=== PATIENT | male | born 1970 | race Asian ===

== ENCOUNTER 2025-02-16 04:49 | Emergency (ER) | payer MEDICAID, SELFPAY ==
[2025-02-16 04:50] VITALS: BMI 25.1
[2025-02-16 04:56] VITALS: BP 95/54; PULSE 55; RESP 17; TEMP 36.6; O2SAT 100
--- NOTE | 2025-02-16 05:05 | EKG_ITS ---
[facility] Test Date: 2025-02-16 Pat Name: MODESTO CALDERON Department: Room: - Gender: Male Health Information Internship: : 1970 Requested By: Estevan Enciso Order Number: [id number] Reading MD: Estevan Enciso Measurements Intervals [place] Rate: 58 P: 87 LA: 168 QRS: 78 QRSD: 110 T: 85 QT: 420 QTc: 415 Interpretive Statements SINUS BRADYCARDIA POSSIBLE RIGHT ATRIAL ENLARGEMENT [0.25mV P-WAVE] POSSIBLE LEFT ATRIAL ENLARGEMENT [-0.1mV P-WAVE IN V1/V2] INCOMPLETE RIGHT BUNDLE BRANCH BLOCK [90+ ms QRS DURATION, TERMINAL R IN V1/V2, 40+ ms S IN I/aVL/V4/V5/V6] ST ELEVATION, PROBABLY EARLY REPOLARIZATION [ST ELEVATION WITH NORMALLY INFLECTED T-WAVE] MODERATE ST DEPRESSION [0.05+ mV ST DEPRESSION] No previous ECG available for comparison /store/S0/[id number].pdf
--- NOTE | 2025-02-16 05:05 | XR_ITS ---
EXAMINATION: Cervical spine 3 views TECHNIQUE: AP, lateral, coned AP odontoid cervical spine 3 views Date and time: February 16, 2025, 0619 hours INDICATIONS: Neck pain beginning 3 days ago FINDINGS: Straightening normal cervical lordosis. Mild degenerative disc disease C5-C6, C6-C7 No cervical fracture Intact odontoid IMPRESSION: Mild degenerative disc disease C5-C6, C6-C7
--- NOTE | 2025-02-16 05:05 | XR_ITS ---
EXAMINATION: Thoracic spine 3 views TECHNIQUE: AP lateral: Lateral upper dorsal spine 3 views Date and time: February 16, 2025, 0630 hours INDICATIONS: Upper back pain beginning 3 days ago. FINDINGS: Mild osteopenia. No thoracic fracture. Mild diffuse thoracic degenerative disc disease IMPRESSION: Mild diffuse thoracic degenerative disc disease
--- NOTE | 2025-02-16 05:05 | XR_ITS ---
EXAMINATION: PA chest single view TECHNIQUE: Upright PA chest single view Date and time: February 16, 2025, 0621 hours INDICATIONS: Chest pain shortness of breath beginning 3 days ago FINDINGS: Normal heart size No lobar pneumonia or pulmonary edema. Intact osseous structures. IMPRESSION: No lobar pneumonia or pulmonary edema
--- NOTE | 2025-02-16 05:06 | PD.EDRME ---
Rapid Medical Screening Exam RME Arrival date/time: 02/16/25 04:49 This is a case of 54-year-old male who have history of asthma came in in the emergency room due to multiple symptoms initially patient was complaining of posterior neck pain and mid back pain which patient started to have shortness of breath no chest pain Chief Complaint: Shortness of Breath/Dyspnea Time Seen by Provider: 02/16/25 05:04 Vital signs: Vital Signs Temperature 98 F 02/16/25 04:56 Pulse Rate 55 L 02/16/25 04:56 Respiratory Rate 17 02/16/25 04:56 Blood Pressure 95/54 L 02/16/25 04:56 Pulse Oximetry (%) 100 02/16/25 04:56 Oxygen Delivery Method Room Air 02/16/25 04:56 Exam: Tenderness noted on posterior cervical and thoracic area clear breath sound heart normal rate regular rhythm normal Clinical Impression: Back pain shortness of breath
[2025-02-16] MEDS: KETOROLAC INJ 60 MG/2 ML VIAL 30 MG IM (05:16)
[2025-02-16] MEDS: HYDROcodone/APAP 5/325 TABLET 1 TAB PO (05:16)
[2025-02-16 06:16] LABS: Basophils # (Auto) 0.1 Thou/mm3 (0.0-0.2); Basophils % (Auto) 1 % (0-2.5); Eosinophils # (Auto) 0.7 Thou/mm3 (0.0-0.5); Eosinophils % (Auto) 5 % (0-10); Hematocrit 37.8 % (41.0-53.0); Hemoglobin 13.1 g/dL (13.5-16.0); Immature Granulocytes Auto 0.05 Thou/mm3 (0.00-0.00); Lymphocytes # (Auto) 2.7 Thou/mm3 (1.0-4.8); Lymphocytes % (Auto) 18 % (10-50); Mean Corpuscular HGB Conc 34.7 g/dl (31.0-37.0); Mean Corpuscular Hemoglobin 31.2 pg (25.0-35.0); Mean Corpuscular Volume 90 fL (80-100); Monocytes # (Auto) 1.2 Thou/mm3 (0.0-0.8); Monocytes % (Auto) 8 % (0-12); Neutrophils # (Auto) 10.1 Thou/mm3 (1.8-7.7); Neutrophils % (Auto) 68 % (37-80); Nucleated Red Blood Cell # 0.00 Thou/mm3 (0.00-0.00); Nucleated Red Blood Cell % 0 /100 WBC (0); Platelet Count 247 Thou/mm3 (140-440); RDW Standard Deviation 40.8 fL (35.1-43.9); Red Blood Count 4.20 Miln/mm3 (4.50-5.90); White Blood Count 14.9 Thou/mm3 (3.8-10.6)
--- NOTE | 2025-02-16 06:48 | EDNOTE_ITS ---
ED Back Injury Pain RME/HPI General Chief Complaint: Shortness of Breath/Dyspnea Stated Complaint: DIFFICULTY BREATHING, BACK PAIN Time Seen by Provider: 02/16/25 05:04 Arrival date/time: 02/16/25 04:49 RME / HPI RME / HPI Narrative: 02/16/25 04:49 This is a case of 54-year-old male who have history of asthma came in in the emergency room due to multiple symptoms initially patient was complaining of posterior neck pain and mid back pain which patient started to have shortness of breath no chest pain See [facility] for Dr. Griffin's HPI documentation. Related Data Previous Rx's ?Medication ?Instructions ?Recorded acetaminophen 300 mg-codeine 30 mg 2 tab PO Q8H PRN pa in #20 tabs 02/16/25 tablet ibuprofen 800 mg tablet 800 mg PO Q8H PRN pain #30 t abs 02/16/25 lidocaine 5 % topical patch 2 patch topical QDAY PRN p ain #30 02/16/25 (Lidoderm) ea Allergies Allergy/AdvReac Type Severity Reaction Status Date / Time NKA* Allergy Uncoded 09/15/10 13:42 Review of Systems Review of Systems Systems Reviewed: All systems reviewed, normal except as documented Past Medical History Social History SMOKING STATUS: Current every day smoker ED Exam Narrative Physical exam: See [facility] for Dr. Griffin's physical exam documentation. Course Quality Measures none Orders Category Date Time Status EKG (ED ONLY) *Do not use* NOW Care 02/16/25 05:05 Completed EKG (ED Only) Stat Exams 02/16/25 05:05 Draft XR cervical spine 2-3V Stat Exams 02/16/25 05:05 Completed XR chest 1V Stat Exams 02/16/25 05:05 Completed XR thoracic spine 3V Stat Exams 02/16/25 05:05 Completed BNP [B-Type Natriuretic Peptide] Stat Lab 02/16/25 05:25 Completed CBC Stat Lab 02/16/25 05:25 Completed CMP [Comprehensive Metabolic Panel] Stat Lab 02/16/25 05:25 Completed Troponin I Stat Lab 02/16/25 05:25 Completed HYDROcodone*/APAP 5/325 [[place] 5/325] Med 02/16/25 05:07 Discontinued 1 tab PO X1 ONE Ketorolac Inj [Toradol Inj] Med 02/16/25 05:07 Discontinued 30 mg IM X1 ONE Morphine* Inj Med 02/16/25 05:05 Discontinued 4 mg IM X1 ONE Ondansetron Odt [Zofran Odt] Med 02/16/25 05:05 Discontinued 4 mg PO X1 ONE Vital Signs Vital signs: Vital Signs Temperature 98 F 02/16/25 04:56 Pulse Rate 55 L 02/16/25 04:56 Respiratory Rate 17 02/16/25 04:56 Blood Pressure 95/54 L 02/16/25 04:56 Pulse Oximetry (%) 100 02/16/25 04:56 Oxygen Delivery Method Room Air 02/16/25 04:56 Back Pain / Injury MDM Narrative MDM Narrative:: This section includes all my notes and documentations, including HPI, PE, and ED course. Adrian Griffin MD HPI: 54-year-old male here with several days of upper back pain. Started in the left side and travel to right side. Works in the field. Worse with certain movement . No chest pain or shortness of breath. No other complaints. ROS: All negative except as documented in HPI. Physical Exam: General: Alert and oriented. No acute distress when remaining still. Eyes: Conjunctivae and lids clear. ENT: No nasal congestion. Neck: Supple. Heart: RRR. Lungs: No respiratory distress. Good air movement. No rhonchi, wheezing, rales. Abdomen: Soft and nontender. Normal bowel sounds. No distension. No rebound or guarding. Back: Palpation of the upper back reproduces his pain. Skin: Warm and dry. Neuro: Alert and oriented X 3. I reviewed all diagnostic test results: My interpretation of the EKG is: Sinus rhythm (58 bpm) with nonspecific ST-T changes. My interpretation of the chest x-ray is NAD. My interpretation of the cervical spine x-ray is NAD. My interpretation of the thoracic spine x-ray is NAD. Blood tests are unremarkable. At this point, diagnoses include: Back strain Treatment here included (by previous provider): [place] 5/325 mg Toradol 30 mg IM Morphine 4 mg IM Zofran ODT 4 mg Significant improvement noted. Recommended supportive care. Based on my best medical judgment, made decision no further evaluation or treatm ent indicated at this time. Patient understands and agrees to the discharge instructions customized and printed, see below. Discharge instructions from Dr. Griffin: 1. After extensive evaluation, there is no life-threatening condition. Such as heart attack. 2. Your pain is originating from the back wall and not from an internal organ. Back has many joints and muscles, so sprains and strains are common. See attached handout. 3. Apply ice or heat if helpful. Ibuprofen 800 mg every 6-8 hours today and tomorrow to decrease inflammation then as needed. Tylenol with codeine and lidocaine patches as needed. 4. See a private doctor on 02/18/2025 for recheck. Ask to review all test results and official radiology reports, to make sure you receive all necessary follow-ups and monitoring. Ask for help until you are completely better. 5. Seek immediate medical care with worsening or with any concerns. Adrian Griffin MD Patient data External records reviewed:: [facility] previous records (Per chart review, patient has no previous ED visits or admissions to this facility.) Clinical information provided by:: patient Social determinants that could affect healthcare access:: substance use Patient has the following chronic illnesses:: none How is presenting disease/condition affected by chronic disease/condition?: no chronic disease Evaluation data The following diagnostics were reviewed and interpreted by me:: lab results, radiology exam(s) and EKG tracing(s) (My interpretation of the EKG is: Sinus rhythm (58 bpm) with nonspecific ST-T changes. Adrian Griffin MD) Lab and/or radiology exams considered but not ordered:: none Interpretation Summary: I reviewed all diagnostic test results: My interpretation of the EKG is: Sinus rhythm (58 bpm) with nonspecific ST-T changes. My interpretation of the chest x-ray is NAD. My interpretation of the cervical spine x-ray is NAD. My interpretation of the thoracic spine x-ray is NAD. Blood tests are unremarkable. Medications / Prescriptions Medications or Prescriptions considered but not ordered:: none Medication administrations:: Medication Administration History Discontinued Medications Hydrocodone Bitart/Acetaminophen (Hydrocodone/Apap 5/325 Tablet) 1 tab PO X1 ONE Stop: 02/16/25 05:08 Last Admin: 02/16/25 05:16 Dose: 1 tab Documented By: OA Ketorolac Tromethamine (Ketorolac Inj 60 Mg/2 Ml Vial) 30 mg IM X1 ONE Stop: 02/16/25 05:08 Last Admin: 02/16/25 05:16 Dose: 30 mg Documented By: OA Morphine Sulfate (Morphine Sulf Inj 4 Mg/Ml Vial) 4 mg IM X1 ONE Stop: 02/16/25 05:06 Last Admin: 02/16/25 05:17 Dose: Not Given Documented By: OA Non-Admin Reason: Discontinued Ondansetron HCl (Ondansetron Odt 4 Mg Tabrap) 4 mg PO X1 ONE; Protocol Stop: 02/16/25 05:06 Last Admin: 02/16/25 05:17 Dose: Not Given Documented By: OA Non-Admin Reason: Discontinued Treatment here included (by previous provider): [place] 5/325 mg Toradol 30 mg IM Morphine 4 mg IM Zofran ODT 4 mg Consultations Consultation(s) initiated? (list below): No Diagnosis Differential diagnosis back pain/injury: other (Fracture/sprain/strain) Most likely diagnosis given after review of the tests above:: Back strain Admission Indicated Admission indicated?: not indicated Explain why admission is indicated or not indicated:: With significant improvement and no condition needing emergent intervention, there was no indication for admission. Admission Request Was there a request for admission?: No Disposition Plan Disposition Plan: Discharge Discharge Attestation Discharge Attestation: The patient and all family members were given an opportunity to ask questions and understood the discharge instructions. Discharge instructions specifically effects, indications for sooner follow up or return to the emergency department, and the expected course of current diagnosis. Patient condition: Stable Discharge Plan Plan Patient Disposition: HOME (Self Care) Prescriptions/Referrals Prescriptions/Med Rec: New ibuprofen 800 mg tablet 800 mg PO Q8H PRN (Reason: pain) Qty: 30 0RF acetaminophen-codeine 300-30 mg tablet 2 tab PO Q8H MDD 6 PRN (Reason: pain) Qty: 20 0RF lidocaine [Lidoderm] 5 % adhesive patch,medicated 2 patch topical QDAY PRN (Reason: pain) Qty: 30 0RF Rx Instructions: leave on most painful area for up to 12 hrs Referrals: No Primary/Family,Physician [Primary Care Provider] - In 1 week Problem List Clinical Impression: Back strain Patient/Caregiver Discharge Instructions Discharge Activity: activity as tolerated Education Materials: ED Back Sprain/Strain Additional Instructions: Discharge instructions from Dr. Griffin: 1. After extensive evaluation, there is no life-threatening condition.? Such as heart attack. 2. Your pain is originating from the back wall and not from an internal organ.? Back has many joints and muscles, so sprains and strains are common.?? See attached handout. 3. Apply ice or heat if helpful.? Ibuprofen 800 mg every 6-8 hours today and tomorrow to decrease inflammation then as needed. Tylenol with codeine and lidocaine patches as needed. 4. See a private doctor on 02/18/2025 for recheck. Ask to review all test results and official radiology reports, to make sure you receive all necessary follow-ups and monitoring. Ask for help until you are completely better. 5. Seek immediate medical care with worsening or with any concerns.?? Print Language: Japanese Stand Alone Forms: [employer] Award Info., Patient Portal Info Letter
[2025-02-16 07:04] LABS: Alanine Aminotransferase 10 U/L (10-49); Albumin, Serum 4.3 gm/dL (3.5-5.0); Albumin/Globulin Ratio 1.4 (1.2-2.2); Alkaline Phosphatase 73 U/L (46-116); Anion Gap 8 (7-16); Aspartate Amino Transferase 12 U/L (0-34); BUN/Creatinine Ratio 15 Ratio (12-20); Bilirubin,Total 0.9 mg/dL (0.3-1.2); Blood Urea Nitrogen 12 mg/dL (9-23); Calcium 9.5 mg/dL (8.3-10.6); Calcium (Corrected) 9.5 mg/dL (8.5-10.1); Carbon Dioxide 24.7 mMol/L (20.0-31.0); Chloride 105 mMol/L (98-107); Creatinine (Component) 0.8 mg/dL (0.6-1.3); Estimated Creatinine Clearance 108.0 mL/min (>60); Globulin 3.1 gm/dL (2.3-3.5); Glucose 116 mg/dL (74-106); Osmolality,Calculated 276 (275-295); Potassium 3.9 mMol/L (3.4-5.1); Sodium 138 mMol/L (136-145); Total Protein 7.4 gm/dL (5.7-8.2); Troponin I < 0.002 ng/mL (0.0-0.045); eGFR > 60 See Note
[2025-02-16 07:11] VITALS: BP 97/61; PULSE 52; RESP 18; TEMP 36.4; O2SAT 96
[2025-02-16 08:08] LABS: B-Type Natriuretic Peptide 21 pg/mL (0-100)
== END 2025-02-16 07:12 | disposition home or self-care (01) ==
PROVIDERS: Nurse Practitioner Family; Emergency Provider Emergency Medicine
DX: S39.012A Strain of muscle, fascia and tendon of lower back, initial encounter (principal); M54.2 Cervicalgia; M54.6 Pain in thoracic spine; R07.9 Chest pain, unspecified; R06.02 Shortness of breath; R00.1 Bradycardia, unspecified; I45.10 Unspecified right bundle-branch block; X58.XXXA Exposure to other specified factors, initial encounter
CPT/HCPCS: 36415; 71045; 72040; 72072; 80053; 83880; 84484; 85025; 93005; 96372; 99283; J1885; A9270